=== PATIENT | male | born 1970 | race African-American/Black ===

== ENCOUNTER 2017-08-06 11:35 | Emergency (ER) | payer OTHER ==
--- NOTE | 2017-08-06 13:06 | CR ---
EXAMINATION: Left knee HISTORY: Pain COMPARISON: None TECHNIQUE: 3 views FINDINGS/IMPRESSION: There is no acute osseous abnormality, dislocation, or fracture. Bone mineraliza tion and joint spaces appear normal. No soft tissue swelling or joint effusion.
[2017-08-06] MEDS ORDERED: methylPREDNISolone Sodium Succinate 125 MG/2 ML SDV IM ONE (13:08)
--- NOTE | 2017-08-06 13:08 | EDM.PDOC ---
ED HPI GENERAL MEDICAL PROBLEM - General Chief Complaint: Lower Extremity Injury/Pain Stated Complaint: POSSIBLE GOUT IN LT KNEE Time Seen by Provider: 08/06/17 13:08 Source of Information: Reports: Patient - History of Present Illness INITIAL COMMENTS - FREE TEXT/NARRATIVE: HISTORY AND PHYSICAL: History of present illness: [Patient with history of gout presents with left knee pain he rates 7 out of 10 in the past he has had a good result with prednisone taper,, probably initial lab as normal however uric acid is 6.8 which is normal on our local scale however quite high on most scales. No fever nausea vomiting chills sweats Left knee full range of motion strength 5 out of 5 no redness mild warmth pain with weightbearing otherwise neurovascularly intact no open lesion hip and ankle and affected Patient notes that he has been noncompliant with medication that he had used to be on as he ran out and as recently moved to [place] from our last he is working in the [employer] a beer over the next 3-4 years hence we discussed establishing care at the clinic Review of systems: As per history of present illness and below otherwise all systems reviewed and negative. Past medical history: As per history of present illness and as reviewed below otherwise noncontributory. Surgical history: As per history of present illness and as reviewed below otherwise noncontributory. Social history: No reported history of drug or alcohol abuse. Family history: As per history of present illness and as reviewed below otherwise noncontributory. Physical exam: HEENT: Atraumatic, normocephalic, pupils reactive, negative for conjunctival pallor or scleral icterus, mucous membranes moist, throat clear, neck supple, nontender, trachea midline. Lungs: Clear to auscultation, breath sounds equal bilaterally, chest nontender. Heart: S1S2, regular, negative for clicks, rubs, or JVD. Abdomen: Soft, nondistended, nontender. Negative for masses or hepatosplenomegaly. Negative for costovertebral tenderness. Pelvis: Stable nontender. Genitourinary: Deferred. Rectal: Deferred. Extremities: Atraumatic, negative for cords or calf pain. Neurovascular unremarkable. Neuro: Awake, alert, oriented. Cranial nerves II through XII unremarkable. Cerebellum unremarkable. Motor and sensory unremarkable throughout. Exam nonfocal. Left knee as per history of present illness Diagnostics: [Left knee plain films complete CBC uric acid ] Therapeutics: [Solu-Medrol 125 mg IM Medrol Dosepak ] Establish care Impression: [Acute gout] Definitive disposition and diagnosis as appropriate pending reevaluation and review of above. left knee Pain Score (Numeric/FACES): 9 - Related Data Allergies Allergy/AdvReac Type Severity Reaction Status Date / Time No Known Allergies Allergy Verified 08/06/17 11:51 Home Meds: Home Meds . [No Known Home Meds] 08/06/17 [History] Past Medical History HEENT History: Reports: None Cardiovascular History: Reports: None Respiratory History: Reports: None Gastrointestinal History: Reports: None Genitourinary History: Reports: None Musculoskeletal History: Reports: Gout Neurological History: Reports: None Psychiatric History: Reports: None Endocrine/Metabolic History: Reports: None Hematologic History: Reports: None Immunologic History: Reports: None Oncologic (Cancer) History: Reports: None Dermatologic History: Reports: None - Infectious Disease History Infectious Disease History: Reports: Chicken Pox, Other (See Below) Other Infectious Disease History: childhood - Past Surgical History Head Surgeries/Procedures: Reports: None HEENT Surgical History: Reports: None Cardiovascular Surgical History: Reports: None Respiratory Surgical History: Reports: None GI Surgical History: Reports: None Male Surgical History: Reports: None Endocrine Surgical History: Reports: None Neurological Surgical History: Reports: None Musculoskeletal Surgical History: Reports: None Oncologic Surgical History: Reports: None Dermatological Surgical History: Reports: None Social & Family History - Family History Family Medical History: Noncontributory - Tobacco Use Smoking Status *Q: Never Smoker Second Hand Smoke Exposure: No - Caffeine Use Caffeine Use: Reports: Energy Drinks - Recreational Drug Use Recreational Drug Use: No Review of Systems - Review of Systems Review Of Systems: ROS reveals no pertinent complaints other than HPI. ED EXAM, GENERAL - Physical Exam Exam: See Below Course - Vital Signs Last Recorded V/S: Last Vital Signs Temp 97.0 F 08/06/17 11:51 Pulse 91 08/06/17 11:51 Resp 18 08/06/17 11:51 BP 131/81 08/06/17 11:51 Pulse Ox 98 08/06/17 11:51 - Orders/Labs/Meds Orders: Active Orders 24 hr Category Date Time Status methylPREDNISolone Sod Succ [Solu-MEDROL] Med 08/06/17 13:08 Once 125 mg IM ONETIME ONE Labs: Laboratory Tests 08/06/17 08/06/17 Range/Units 12:08 12:08 WBC 7.37 (4.0-11.0) K/uL RBC 5.73 (4.50-5.90) M/uL Hgb 15.8 (13.0-17.0) g/dL Hct 46.0 (38.0-50.0) % MCV 80.3 (80.0-98.0) fL MCH 27.6 (27.0-32.0) pg MCHC 34.3 (31.0-37.0) g/dL RDW Std Deviation 38.9 (28.0-62.0) fl RDW Coeff of Calvin 13 (11.0-15.0) % Plt Count 223 (150-400) K/uL MPV 9.50 (7.40-12.00) fL Neut % (Auto) 68.3 (48.0-80.0) % Lymph % (Auto) 26.3 (16.0-40.0) % Iron % (Auto) 4.2 (0.0-15.0) % Eos % (Auto) 0.8 (0.0-7.0) % Baso % (Auto) 0.4 (0.0-1.5) % Neut # (Auto) 5.0 (1.4-5.7) K/uL Lymph # (Auto) 1.9 (0.6-2.4) K/uL Iron # (Auto) 0.3 (0.0-0.8) K/uL Eos # (Auto) 0.1 (0.0-0.7) K/uL Baso # (Auto) 0.0 (0.0-0.1) K/uL Nucleated RBC % 0.0 /100WBC Nucleated RBCs # 0 K/uL Uric Acid 6.8 (2.6-7.2) mg/dL Departure - Departure Time of Disposition: 13:11 Disposition: Home, Self-Care 01 Condition: Good Clinical Impression: Acute gout - Discharge Information Referrals: PCP,None [Primary Care Provider] - Forms: ED Department Discharge Additional Instructions: Medication as prescribed Return if symptoms persist or worsen Follow-up and establish care with a primary physician, call number below for ER follow-up as well as to establish care for gout [facility] [address] [place] [id number] The following information is given to patients seen in the emergency department who are being discharged to home. This information is to outline your options for follow-up care. We provide all patients seen in our emergency department with a follow-up referral. The need for follow-up, as well as the timing and circumstances, are variable depending upon the specifics of your emergency department visit. If you don't have a primary care physician on staff, we will provide you with a referral. We always advise you to contact your personal physician following an emergency department visit to inform them of the circumstance of the visit and for follow-up with them and/or the need for any referrals to a consulting specialist. The emergency department will also refer you to a specialist when appropriate. This referral assures that you have the opportunity for follow-up care with a specialist. All of these measure are taken in an effort to provide you with optimal care, which includes your follow-up. Under all circumstances we always encourage you to contact your private physician who remains a resource for coordinating your care. When calling for follow-up care, please make the office aware that this follow-up is from your recent emergency room visit. If for any reason you are refused follow-up, please contact the [facility] emergency department at and asked to speak to the emergency department charge nurse. - My Orders Last 24 Hours: My Active Orders 08/06/17 13:08 methylPREDNISolone Sod Succ [Solu-MEDROL] 125 mg IM ONETIME ONE - Assessment/Plan Last 24 Hours: My Active Orders 08/06/17 13:08 methylPREDNISolone Sod Succ [Solu-MEDROL] 125 mg IM ONETIME ONE
== END 2017-08-06 13:43 | disposition home or self-care (01) ==
LOC: MW.ED 11:35
DX: M10.9 Gout, unspecified (principal)
CPT/HCPCS: 36415; 73562; 84550; 85025; 96372; 99283; J2930

== ENCOUNTER 2019-02-25 08:29 | Emergency (ER) | payer OTHER ==
[2019-02-25] MEDS ORDERED: Ketorolac 60 MG/2 ML SDV IM STA (08:59)
--- NOTE | 2019-02-25 09:07 | EDM.PDOC ---
ED HPI GENERAL MEDICAL PROBLEM - General Chief Complaint: Upper Extremity Injury/Pain Stated Complaint: LT SHOULDER PAIN Time Seen by Provider: 02/25/19 08:35 - History of Present Illness INITIAL COMMENTS - FREE TEXT/NARRATIVE: HISTORY AND PHYSICAL: History of present illness: 48-year-old male presented to ER today complaining of left shoulder pain. Patient reports pain started in June while mowing his lawn. Denies any recent injury. He reports that the pain has been slowly getting worse. He describes the pain as being throbbing in nature and aggravated by prolonged rest. He reports the pain is alleviated by movement and once he gets going throughout the day. The pain is rated as an 10 out of 10 in the morning and then improves as he is more active. There is no radiation of pain. Patient does have a past medical history of gout and takes occasional naproxen. Patient also reports sore throat and cough for 1 day. He has had subjective fevers. He has not taking anything [id number] for this as of yet. Review of systems: As per history of present illness and below otherwise all systems reviewed and negative. Past medical history: As per history of present illness and as reviewed below otherwise noncontributory. Surgical history: As per history of present illness and as reviewed below otherwise noncontributory. Social history: No reported history of drug or alcohol abuse. Family history: As per history of present illness and as reviewed below otherwise noncontributory. Physical exam: HEENT: Atraumatic, normocephalic, pupils reactive, negative for conjunctival pallor or scleral icterus, mucous membranes moist, throat clear, neck supple, nontender, trachea midline. Lungs: Clear to auscultation, breath sounds equal bilaterally. Heart: S1S2, regular. Abdomen: soft, nt, non-distended, normal bowel sounds. Musculoskeletal: Left shoulder - no obvious deformity on visual inspection, generalized tenderness on palpation, normal ROM but elicits tenderness. 5/5 strength. Pelvis: Deferred. Genitourinary: Deferred. Rectal: Deferred. Extremities: Neurovascular unremarkable. Neuro: Awake, alert, oriented. Cranial nerves II through XII unremarkable. Diagnostics: None Therapeutics: IM Toradol 60 mg Impression: 1. Left shoulder pain 2. Sore throat Plan: 1. For left shoulder pain, patient given shot of Toradol 60 mg today. Recommended continuing to take [id number] NSAIDs as needed. Also advised patient to establish care with a primary care provider to follow-up. Patient in agreement with plan. 2. For sore throat, recommended warm saltwater gargles, hydration, honey, OTC Cepacol and Tylenol prn fever. Definitive disposition and diagnosis as appropriate pending reevaluation and review of above. left shoulder Pain Score (Numeric/FACES): 8 - Related Data Allergies Allergy/AdvReac Type Severity Reaction Status Date / Time No Known Allergies Allergy Verified 02/25/19 08:38 Home Meds: Home Meds Naproxen Sodium [Aleve] 220 mg PO DAILY 02/25/19 [History] Past Medical History HEENT History: Reports: None Cardiovascular History: Reports: None Respiratory History: Reports: None Gastrointestinal History: Reports: None Genitourinary History: Reports: None Musculoskeletal History: Reports: Gout Neurological History: Reports: None Psychiatric History: Reports: None Endocrine/Metabolic History: Reports: None Hematologic History: Reports: None Immunologic History: Reports: None Oncologic (Cancer) History: Reports: None Dermatologic History: Reports: None - Infectious Disease History Infectious Disease History: Reports: Chicken Pox Other Infectious Disease History: childhood - Past Surgical History Head Surgeries/Procedures: Reports: None HEENT Surgical History: Reports: None Cardiovascular Surgical History: Reports: None Respiratory Surgical History: Reports: None GI Surgical History: Reports: None Male Surgical History: Reports: None Endocrine Surgical History: Reports: None Neurological Surgical History: Reports: None Musculoskeletal Surgical History: Reports: None Oncologic Surgical History: Reports: None Dermatological Surgical History: Reports: None Social & Family History - Family History Family Medical History: Noncontributory - Tobacco Use Smoking Status *Q: Never Smoker - Caffeine Use Caffeine Use: Reports: Energy Drinks - Recreational Drug Use Recreational Drug Use: No Review of Systems - Review of Systems Review Of Systems: ROS reveals no pertinent complaints other than HPI. ED EXAM, GENERAL - Physical Exam Exam: See Below Course - Vital Signs Last Recorded V/S: Last Vital Signs Temp 96.3 F 02/25/19 08:39 Pulse 77 02/25/19 08:39 Resp 18 02/25/19 08:39 BP 144/88 H 02/25/19 08:39 Pulse Ox 96 02/25/19 08:39 - Orders/Labs/Meds Meds: Medications Discontinued Medications Generic Name Dose Route Start Last Admin Trade Name Vinay PRN Reason Stop Dose Admin Ketorolac Tromethamine 60 mg 02/25/19 08:59 Toradol IM 02/25/19 09:00 ONETIME STA Departure - Departure Time of Disposition: 09:08 Disposition: DC/Tfer W/I Hosp To Swing 61 Condition: Good Clinical Impression: Sore throat (viral), Shoulder pain - Discharge Information *PRESCRIPTION DRUG MONITORING PROGRAM REVIEWED*: Not Applicable *COPY OF PRESCRIPTION DRUG MONITORING REPORT IN PATIENT FAYE: Not Applicable Instructions: Shoulder Pain, Sore Throat, [id number] Referrals: PCP,None [Primary Care Provider] - Forms: ED Department Discharge Additional Instructions: The following information is given to patients seen in the emergency department who are being discharged to home. This information is to outline your options for follow-up care. We provide all patients seen in our emergency department with a follow-up referral. The need for follow-up, as well as the timing and circumstances, are variable depending upon the specifics of your emergency department visit. If you don't have a primary care physician on staff, we will provide you with a referral. We always advise you to contact your personal physician following an emergency department visit to inform them of the circumstance of the visit and for follow-up with them and/or the need for any referrals to a consulting specialist. The emergency department will also refer you to a specialist when appropriate. This referral assures that you have the opportunity for follow-up care with a specialist. All of these measure are taken in an effort to provide you with optimal care, which includes your follow-up. Under all circumstances we always encourage you to contact your private physician who remains a resource for coordinating your care. When calling for follow-up care, please make the office aware that this follow-up is from your recent emergency room visit. If for any reason you are refused follow-up, please contact the [facility] Emergency Department at and asked to speak to the emergency department charge nurse.
== END 2019-02-25 09:38 | disposition home or self-care (01) ==
LOC: MW.ED 08:29
DX: M25.512 Pain in left shoulder (principal); J02.9 Acute pharyngitis, unspecified; Z79.899 Other long term (current) drug therapy
CPT/HCPCS: 96372; 99283; J1885